=== PATIENT | male | born 1995 | race Caucasian/White ===

== ENCOUNTER 2023-05-09 18:12 | Emergency (ER) | payer SELFPAY ==
[~2023-05-09] VITALS: Ht 172.7 cm; Wt 158.8 kg
[2023-05-09 18:30] VITALS: BP 137/91
--- NOTE | 2023-05-09 18:48 | NUR ---
MD PAPPAS AT BEDSIDE FOR EVALUATION
[2023-05-09] MEDS ORDERED: KETOROLAC 60 MG/2 ML VIAL IM ONE (18:55)
[2023-05-09] MEDS ORDERED: ACET-8905 PO (19:00)
[2023-05-09] MEDS ORDERED: DOCU-299 PO (19:00)
[2023-05-09] MEDS ORDERED: IBUP-2213 PO (19:00)
[2023-05-09] MEDS ORDERED: HYDR-2734 TP (19:00)
--- NOTE | 2023-05-09 19:20 | NUR ---
Patient discharged with v/s stable. Written and verbal after care instructions given and explained. Patient alert, oriented and verbalized understanding of instructions. Ambulatory with steady gait. All questions addressed prior to discharge. ID band removed. Patient advised to follow up with PMD. Rx of HYDROCON, COLACE,HYDROCORTISONE AND IBUPROFEN given. . Opportunity to ask questions provided and answered.
[2023-05-09] MEDS ORDERED: HYDR-5191 PO (22:44)
== END 2023-05-09 19:20 | disposition home or self-care (01) ==
LOC: MED 18:12
DX: K64.5 Perianal venous thrombosis (principal); F12.90 Cannabis use, unspecified, uncomplicated
CPT/HCPCS: 96372; 99283; J1885